=== PATIENT | female | born 1955 | race Caucasian/White ===

== ENCOUNTER 2023-05-14 17:24 | Emergency (ER) | payer OTHER, BC ==
[2023-05-14] MEDS ORDERED: Diphtheria,Pertussis(Acell),Tetanus Vaccine 0.5 ML Syringe IM ONE (17:38)
[2023-05-14 17:41] VITALS: PULSE 64
[2023-05-14 18:19] VITALS: BP 166/74
== END 2023-05-14 18:18 | disposition home or self-care (01) ==
LOC: JD.ED 17:24
DX: S61.315A Laceration without foreign body of left ring finger with damage to nail, initial encounter (principal); E78.00 Pure hypercholesterolemia, unspecified; I10 Essential (primary) hypertension; Z23 Encounter for immunization; Z79.899 Other long term (current) drug therapy; Z90.710 Acquired absence of both cervix and uterus; W26.8XXA Contact with other sharp object(s), not elsewhere classified, initial encounter; Y99.0 Civilian activity done for income or pay
CPT/HCPCS: 12001; 90471; 90715; 99282; 99282-25